=== PATIENT | female | born 1990 | race Caucasian/White ===

== ENCOUNTER 2024-06-20 14:17 | Outpatient (AMB) | payer BC, SELFPAY ==
[2024-06-20 14:19] VITALS: BP 98/62; PULSE 84; O2SAT 98; BMI 35.7
--- NOTE | 2024-06-20 14:19 | MHC.PC.OV ---
Vital Signs 06/20/24 14:19 Height 5 ft 1 in Weight 189 lb BMI 35.7 BP 98/62 Blood Pressure Location Lt brachial Position Sitting Pulse 84 Pulse Source Pulse Oximeter Pulse Oximetry (%) 98 Oxygen Delivery Method Room Air Intake Visit Reasons: NEW PATIENT Electrician Wiring Required: No Allergies No Known Allergies Allergy (Verified 06/20/24 14:33) Medication List - Last Reconciled 06/20/[address] PA-C medroxyprogesterone mg IM Tobacco use date assessed: 06/20/24 Dental Screening Dental Screen Date: 06/20/24 Did you have a dental visit in the last 12 months?: Yes Did you have a dental problem in the last 6 months where you did not have access to dental care?: No Was dental information given to patient?: Patient has dentist HPI NEW PATIENT HPI Details 33-year-old female coming to the office for the 1st time. [place] [facility] [place] She regularly follows with [place]necology through [facility] for annual Pap smears and management control. Patient states she has not been to a primary care in over 10 years. Since December she has been having regular stools which began with initially change in color and has progressed to change in caliber. Patient has been having diarrhea 3-4 times per day and often wakes up in the middle of the night to use the bathroom. Denies seeing any blood in the stools or pain when having a bowel movement. She has not tried anything for her symptoms and denies any incontinence. She also mentions having brain fog for several months. [facility] Family History (Updated 06/20/24 @ 14:[address] PA-C) Maternal Uncle Colon cancer Maternal Aunt Diabetes Social History (System 11/13/23 @ 12:42 by Fabby Ruelas) Housing: House Patient Tobacco Use Status: Never used Tobacco service: No Current occupational status: employed Current occupation: teacher Cognitive needs: No Hearing needs: No Vision needs: No Female Reproductive History Menstrual control method: progesterone injection Questionnaire PHQ-9 Over the last 2 weeks, how often have you been bothered by any of the following problems? 1. Little interest or pleasure in doing things: not at all 2. Feeling down, depressed, or hopeless: not at all 3. Trouble falling or staying asleep, or sleeping too much: not at all 4. Feeling tired or having little energy: several days 5. Poor appetite or overeating: not at all 6. Feeling bad about yourself - or that you are a failure or have let yourself or your family down: not at all 7. Trouble concentrating on things, such as reading the newspaper or watching television: several days 8. Moving or speaking so slowly that other people could have noticed. Or the opposite - being so fidgety or restless that you have been moving around a lot more than usual: not at all 9. Thoughts that you would be better off or of hurting yourself in some way: not at all Total score: 2 Depression Screening Interpretation: Negative Depression Screening Done: Yes 26093 - PHQ-9 Billing: Yes Source: Developed by Drs. Jay Mackenzie, Dee Dee Page, Andrea Red and colleagues, with an educational nomi from [employer]. Thrive Questionnaire Date Thrive assessed: 06/20/24 I am a: Patient What is your living situation today?: I have a steady place to live Within the past 12 months, did the food you bought not last and you didn't have the money to get more?: Never true Within the past 12 months, did you worry whether your food would run out before you got money to buy more?: Never true Do you have trouble paying for medicines?: No Do you have trouble getting transportation to medical appointments?: No Do you have trouble paying your heating and electricity bill?: No Do you have trouble taking care of your child, family member or friend?: No Do you have trouble with day-to-day activities such as bathing, preparing meals, shopping, managing finances, etc.?: No Are you currently unemployed and looking for a job?: No Are you interested in more education?: No Please select the resources that you would like help with: None Currently or been in a relationship where the following occur: No concerns reported THRIVE Score: 0 AUDIT C Alcohol Use Questionnaire (AUDIT-C) 1. How often do you have a drink containing alcohol?: 2-4 times a month 2. How many drinks containing alcohol do you have on a typical day when you are drinking?: 1 or 2 3. How often do you have six or more drinks on one occasion?: Never Total Score: 2 DHARA-7 AMB Questionnaire DHARA-7 Date DHARA - 7 assessed: 06/20/24 Feeling nervous, anxious, or on edge: 0 = Not at all Not being able to stop or control worryin = Not at all Worrying too much about different things: 0 = Not at all Trouble relaxin = Not at all Being so restless that it is hard to sit still: 0 = Not at all Becoming easily annoyed or irritable: 2 = More than half the days Feeling afraid as if something awful might happen: 0 = Not at all Total DHARA-7 score (0-4 normal; 5-9 mild; 10-14 moderate; 15-21 severe): 2 Source: Developed by Drs. Jay Mackenzie, Dee Dee Page, Andrea Red and colleagues, with an educational nomi from [employer]. DHARA-7 Assessment Billing DHARA-7 Assessment Tool: DHARA-7 Assessment 82325 Review of Systems Const Denies body aches, Denies fatigue, Denies fever(s), Denies frequent falls, Denies headache(s) and Denies weakness Eyes Reports no additional complaints and Denies change in vision ENT Denies dysphagia, Denies dizziness, Denies facial pain, Denies headache(s), Denies nasal congestion and Denies odynophagia Card Denies chest pain, Denies syncope, Denies irregular heart rhythm, Denies leg edema, Denies lightheadedness and Denies dyspnea Resp Denies cough and Denies dyspnea GI Denies abdominal pain, Denies melena, Denies hematochezia, Denies constipation, Denies dysphagia, Denies dyspepsia, Reports diarrhea, Denies nausea, Denies odynophagia and Denies vomiting Denies urinary frequency, Denies dysuria, Denies urinary hesitancy and Denies urinary urgency Musc Denies back pain and Denies myalgias Skin/Breast Reports system reviewed and no additional complaints, except as documented Neuro Denies dizziness, Denies syncope, Denies frequent falls, Denies headache(s) and Denies weakness Psych Reports no additional complaints Endo Denies fatigue Physical exam (Primary Care) Vital Signs: Last Vital Signs Pulse 84 06/20/24 14:19 BP 98/62 06/20/24 14:19 Pulse Ox 98 06/20/24 14:19 Oxygen Delivery Method Room Air 06/20/24 14:19 BMI result Body Mass Index 35.7 Tobacco/Smoking Status: Tobacco use Status Tobacco use date assessed 06/20/24 06/20/24 14:20 Patient Tobacco Use Status Never used Tobacco 06/20/24 14:20 PHQ-9: PHQ-9 Score PHQ-9: Total score 2 06/20/24 14:32 Depression Screening Interpretation: Negative Thrive Assessment: Date of Thrive Assessment Date Thrive assessed 06/20/24 06/20/24 14:20 Currently or been in a relationship where the following occur: No concerns reported Const General: cooperative, healthy appearing, comfortable and no acute distress Orientation/consciousness: patient oriented x3 HENMT Head: Yes normocephalic Ears: hearing grossly normal bilaterally General nose exam: Normal external nose present Eyes General: appearance normal, both eyes and all related structures Conjunctivae: conjunctivae normal Neck Neck: Yes full ROM and Yes no lymphadenopathy Resp Effort & Inspection: normal respiratory effort Auscultation: clear to auscultation bilaterally, no crackles, no rales, no rhonchi and no wheezes Cardio Rate: regular rate Rhythm: regular rhythm GI Inspection: Yes normal to inspection Palpation (GI): Soft to palpation, not firm, nontender, no guarding, not rigid and no masses Skin General skin exam: no rashes or lesions noted Neuro General: patient oriented x3 Gait exam (Neuro): Normal gait present Extrem General: Yes normal to inspection, Yes full ROM and No edema Psych Affect: normal affect Attitude: cooperative Insight: Good insight present (Psych) Judgement: Good judgement present (Psych) Coding Level of Care Code New Pt Level 4 (82444) Diagnoses Diarrhea R19.7 Brain fog R41.89 Additional Codes DHARA-7 Assessment Billing - DHARA-7 Assessment Tool: DHARA-7 Assessment 45362 ([id number]) Assessment & Plan Assessment & Plan (1) Diarrhea: Code(s): R19.7 - Diarrhea, unspecified Category: Medical Plan: Patient states she has been having diarrhea 3-4 times per day without abdominal pain or blood in the stools. Ordered for blood work for further evaluation. Discussed starting fiber daily to help bulk the stools and beginning a low FODMAP diet. Patient was provided with informational packet on low FODMAP diet and we will follow up in 2 months annual exam for re-evaluation. Advised to drink plenty of water to stay hydrated. (2) Brain fog: Code(s): R41.89 - Other symptoms and signs involving cognitive functions and awareness Category: Medical Plan: Patient states she has been having brain fog without any anxiety or depression. She feels she sleeps okay with the exception of waking up to use the bathroom. Denies any snoring or shortness of breath at night. Ordered for routine blood work to look for organic cause. Follow up at next appointment. Plan Ordered for updated blood work to be completed before next appointment and we will follow up in 2 months for annual exam. This note was constructed using voice recognition software. While every effort has been made to ensure accuracy and dolly operator, still areas may have been included sometimes these areas may affect the content or meeting of the given symptoms. Total time spent caring for the patient today was 30 minutes. This includes time spent before the visit reviewing the chart, time spent during the visit, and time spent after the visit and documentation. Orders: Orders Comprehensive Met. Panel Today Z00.00 - Encounter for general adult medical examination without abnormal findings Complete Blood Count Auto Diff Today Z00.00 - Encounter for general adult medical examination without abnormal findings Free T4 (Free Thyroxine) Today Z00.00 - Encounter for general adult medical examination without abnormal findings Vitamin D 25-OH (D2 and D3) Today Z00.00 - Encounter for general adult medical examination without abnormal findings TSH reflex Free T4 Today Z00.00 - Encounter for general adult medical examination without abnormal findings Lipid Panel Today Z00.00 - Encounter for general adult medical examination without abnormal findings Vitamin B12 and Folate Today Z00.00 - Encounter for general adult medical examination without abnormal findings UA CC w/rflx Micro + Cult Today R35.89 - Other polyuria
== END 2024-06-20 14:58 | disposition home or self-care (01) ==
PROVIDERS: PCP Internal Medicine
DX: R19.7 Diarrhea, unspecified (principal); R41.89 Other symptoms and signs involving cognitive functions and awareness

== ENCOUNTER → 2024-06-20 14:17 | Outpatient (BNVA) | payer BC, SELFPAY | PROVIDERS: PCP Internal Medicine | DX: R19.7 Diarrhea, unspecified (principal); R41.89 Other symptoms and signs involving cognitive functions and awareness | CPT/HCPCS: 96127 ==

== ENCOUNTER 2024-08-16 07:17 | Outpatient (REF) | payer BC, SELFPAY ==
[2024-08-16 07:31] LABS: MANUAL DIFF FLAG NO
[2024-08-16 07:44] LABS: Basophils Percent Auto 0.4 % (0-2); Eosinophils Absolute Auto 0.2 X10*3/uL (0.0-0.4); Eosinophils Percent Auto 2.3 % (0-4); Hematocrit 38.3 % (37.0-47.0); Hemoglobin 12.7 g/dl (12.0-16.0); Imm Gran Abs Auto 0.04 X10*3/uL (0.00-0.03); Imm Gran Pct Auto 0.5 % (0.0-0.4); Lymphocytes Absolute Auto 3.6 X10*3/uL (1.2-4.9); Mean Corpuscular HGB Conc 33.2 g/dl (31.0-35.0); Mean Corpuscular Volume 87.4 fL (80.0-98.0); Mean Platelet Volume 8.7 fL (9.4-12.3); Monocytes Absolute Auto 0.5 X10*3/uL (0.1-1.2); Monocytes Percent Auto 5.4 % (2-11); Neutrophils Percent Auto 48.4 % (45-73); Platelet Count 298 X10*3/uL (160-400); Red Blood Count 4.38 X10*6/uL (4.20-5.50); Red Cell Distribution Width 13.3 % (11.0-16.0); White Blood Count 8.3 X10*3/uL (4.8-10.8)
[2024-08-16 07:47] LABS: Appearance Urine Clear; Color Urine Yellow; Glucose Urine UA Negative (Negative); Leukocyte Esterase Urine Negative (Negative); Nitrite Urine Negative (Negative); PH 5.5 (5.0-9.0); Specific Gravity - Urine 1.025 (1.005-1.025); Urine Blood Negative (Negative); Urine Ketones Negative (Negative); Urine Protein Negative (Neg-Trace)
[2024-08-16 08:24] LABS: Alanine Aminotransferase 16 U/L (0-31); Albumin Level 4.3 g/dL (3.5-5.0); Alkaline Phosphatase 56 U/L (39-117); Anion Gap 12 (12-20); Aspartate Amino Transferase 20 U/L (5-31); Bilirubin Total 0.5 mg/dL (0.0-1.0); Blood Urea Nitrogen 12 mg/dL (9-16); Calcium 9.4 mg/dL (8.4-10.2); Carbon Dioxide 24 mmol/L (22-29); Chloride 108 mmol/L (96-108); Cholesterol 176 mg/dL (<200); Estimated Glomerular Filt Rate > 60; Glucose Random 92 mg/dL (60-115); HDL Cholesterol 61 mg/dL (>40); LDL Cholesterol Calculated 104 mg/dL (<100); Potassium 4.1 mmol/L (3.3-5.1); Sodium 140 mmol/L (135-145); Total Protein 7.5 g/dL (6.5-8.0); Triglycerides 58 mg/dL (<150)
[2024-08-16 08:40] LABS: Free T4 (Free Thyroxine) 1.08 ng/dL (0.71-1.85); TSH reflex Free T4 1.09 uIU/mL (0.32-4.0)
[2024-08-16 08:49] LABS: Folate 14.3 ng/mL (> or = 4.0); Vitamin B12 490 pg/mL (200-900)
[2024-08-19 13:32] LABS: Vitamin D 25-OH, D2 <4 ng/mL; Vitamin D 25-OH, D3 21 ng/mL; Vitamin D 25-OH, Total 21 ng/mL (30-100)
== END 2024-08-16 07:18 | disposition home or self-care (01) ==
LOC: HO.LAB 07:17
DX: Z00.00 Encounter for general adult medical examination without abnormal findings (principal); R35.89 Other polyuria
CPT/HCPCS: 36415; 80053; 80061; 81003; 82306; 82607; 82746; 84439; 84443; 85025

== ENCOUNTER 2024-08-22 13:34 | Outpatient (AMB) | payer BC, SELFPAY ==
[2024-08-22 13:42] VITALS: BP 104/68; PULSE 70; O2SAT 100; BMI 35.6
--- NOTE | 2024-08-22 13:42 | A.OFFPC_ITS ---
Vital Signs 08/22/24 13:42 Height 5 ft 1 in Weight 188 lb 6 oz BMI 35.6 BP 104/68 Blood Pressure Location Lt brachial Position Sitting Pulse 70 Pulse Source Pulse Oximeter Pulse Oximetry (%) 100 Oxygen Delivery Method Room Air Intake Visit Reasons: Annual Exam Intake Note: Patient is here today for a physical. Circulation Director Required: No Accompanied by: Self / Same As Patient Allergies No Known Allergies Allergy (Verified 08/22/24 13:50) Medication List - Last Reconciled 08/22/[address] PA-C medroxyprogesterone mg IM Tobacco use date assessed: 06/20/24 Dental Screening Dental Screen Date: 06/20/24 HPI Annual Exam HPI Details 33-year-old female coming to the office for annual exam. Patient follows with gynecology through [facility] for regular Pap smears and is due in November. She does mentioned in the diarrhea has been persistent despite using fiber and following the low FODMAP diet. She has no family history of inflammatory bowel disease and does have family history of colorectal cancer in a maternal uncle. She states her headaches have been improving and is no longer waking up with headaches. However she does still wake up in the middle of the night to have a bowel movement. [facility] Family History Maternal Uncle Colon cancer Maternal Aunt Diabetes Social History Housing: House Patient Tobacco Use Status: Never used Tobacco e-Cigarette/Vaping Use: Never Used service: No Current occupational status: employed Current occupation: teacher Cognitive needs: No Hearing needs: No Vision needs: No Questionnaire Thrive Questionnaire Date Thrive assessed: 06/20/24 I am a: Patient What is your living situation today?: I have a steady place to live Within the past 12 months, did the food you bought not last and you didn't have the money to get more?: Never true Within the past 12 months, did you worry whether your food would run out before you got money to buy more?: Never true Do you have trouble paying for medicines?: No Do you have trouble getting transportation to medical appointments?: No Do you have trouble paying your heating and electricity bill?: No Do you have trouble taking care of your child, family member or friend?: No Do you have trouble with day-to-day activities such as bathing, preparing meals, shopping, managing finances, etc.?: No Are you currently unemployed and looking for a job?: No Are you interested in more education?: No Please select the resources that you would like help with: None Currently or been in a relationship where the following occur: No concerns reported THRIVE Score: 0 DHARA-7 AMB Questionnaire DHARA-7 Date DHARA - 7 assessed: 06/20/24 Source: Developed by Drs. Jay Mackenzie, Dee Dee Page, Andrea Red and colleagues, with an educational nomi from [email or web address]. Review of Systems Const Denies body aches, Denies fatigue, Denies fever(s), Denies frequent falls, Denies headache(s) and Denies weakness Eyes Reports no additional complaints and Denies change in vision ENT Denies dysphagia, Denies dizziness, Denies facial pain, Denies headache(s), Denies nasal congestion and Denies odynophagia Card Denies chest pain, Denies syncope, Denies irregular heart rhythm, Denies leg edema, Denies lightheadedness and Denies dyspnea Resp Denies cough and Denies dyspnea GI Denies abdominal pain, Denies melena, Denies hematochezia, Denies constipation, Denies dysphagia, Denies dyspepsia, Reports diarrhea, Denies nausea, Denies odynophagia and Denies vomiting Denies urinary frequency, Denies dysuria, Denies urinary hesitancy and Denies urinary urgency Musc Denies back pain and Denies myalgias Skin/Breast Reports system reviewed and no additional complaints, except as documented Neuro Denies dizziness, Denies syncope, Denies frequent falls, Denies headache(s) and Denies weakness Psych Reports no additional complaints Endo Denies fatigue Physical exam (Primary Care) Vital Signs: Last Vital Signs Pulse 70 08/22/24 13:42 BP 104/68 08/22/24 13:42 Pulse Ox 100 08/22/24 13:42 Oxygen Delivery Method Room Air 08/22/24 13:42 BMI result Body Mass Index 35.6 Tobacco/Smoking Status: Tobacco use Status Tobacco use date assessed 06/20/24 08/22/24 13:44 Patient Tobacco Use Status Never used Tobacco 08/22/24 13:44 e-Cigarette/Vaping Use Never Used 08/22/24 13:44 Thrive Assessment: Date of Thrive Assessment Date Thrive assessed 06/20/24 08/22/24 13:44 Currently or been in a relationship where the following occur: No concerns reported Const General: cooperative, healthy appearing, comfortable and no acute distress Orientation/consciousness: patient oriented x3 HENMT Head: Yes normocephalic Ears: hearing grossly normal bilaterally, external ears normal, TM's normal bilaterally and EAC's normal General nose exam: Normal external nose present Face and sinus: Yes normal facial exam and Yes sinuses nontender Mouth: Normal oral and palatal mucosa present and tongue normal Throat: Yes posterior oropharynx normal Eyes General: appearance normal, both eyes and all related structures Conjunctivae: conjunctivae normal Pupils: Equal, round and reactive pupils present EOM: EOMs intact bilaterally and No Nystagmus present Neck Neck: Yes normal visual inspection, Yes full ROM and Yes no lymphadenopathy Chest Chest palpation & inspection: normal inspection of the chest Resp Effort & Inspection: normal respiratory effort Auscultation: clear to auscultation bilaterally, no crackles, no rales, no rhonchi, no wheezes and breath sounds present Cardio Rate: regular rate Rhythm: regular rhythm Peripheral pulses: radial pulses present and dorsalis pedis present GI Inspection: Yes normal to inspection and No Abdominal wall edema Palpation (GI): Soft to palpation, not firm and nontender Auscultation: normal bowel sounds Rectal Exam - Female: deferred General: Yes no CVA tenderness Back/Spine/Pelvis Back: no CVA tenderness Skin General skin exam: no rashes or lesions noted Neuro General: patient oriented x3 Cranial nerves: Yes Equal, round and reactive pupils present, Yes Midline tongue present, Yes Ability to bilaterally elevate shoulders present and No Nystagmus present Gait exam (Neuro): Normal gait present Extrem General: Yes normal to inspection, Yes full ROM, No no pedal edema and No edema Psych Speech and movement: Normal speech and movement present Affect: normal affect Insight: Good insight present (Psych) Judgement: Good judgement present (Psych) Coding Level of Care Code Est Pt Prev Care 18-39y(55956) Diagnoses Annual physical exam Z00.00 Diarrhea R19.7 Assessment & Plan Assessment & Plan (1) Annual physical exam: Code(s): Z00.00 - Encounter for general adult medical examination without abnormal findings Category: Medical Plan: Patient is up-to-date on all recommended routine screenings and vaccinations for her age blood work is updated and we will follow up yearly or sooner if new problems arise. (2) Diarrhea: Code(s): R19.7 - Diarrhea, unspecified Category: Medical Plan: Patient continues to have diarrhea we will order for stool studies as well as ova and parasites and refer to GI at this time for further workup. Plan This note was constructed using voice recognition software. While every effort has been made to ensure accuracy and fish icer, still areas may have been included sometimes these areas may affect the content or meeting of the given symptoms. Total time spent caring for the patient today was 30 minutes. This includes time spent before the visit reviewing the chart, time spent during the visit, and time spent after the visit and documentation. Orders: Orders CDiff Gene PCR Today R19.7 - Diarrhea, unspecified Ova and Parasite Today R19.7 - Diarrhea, unspecified Leukocytes Stool Qualitative Today R19.7 - Diarrhea, unspecified Referrals Gastroenterology Referral R19.7 - Diarrhea, unspecified
== END 2024-08-22 14:09 | disposition home or self-care (01) ==
PROVIDERS: PCP Internal Medicine
DX: Z00.00 Encounter for general adult medical examination without abnormal findings (principal); R19.7 Diarrhea, unspecified

== ENCOUNTER → 2024-08-22 13:34 | Outpatient (BNVA) | payer BC, SELFPAY | PROVIDERS: PCP Internal Medicine ==

== ENCOUNTER 2024-08-29 11:38 | Outpatient (REF) | payer BC, SELFPAY ==
[2024-08-29 12:38] LABS: Leukocytes Stool Qualitative NEGATIVE (NEGATIVE)
[2024-08-29 12:50] LABS: CDiff Gene PCR NEGATIVE (Negative)
== END 2024-08-29 11:39 | disposition home or self-care (01) ==
LOC: HO.LNP 11:38
DX: R19.7 Diarrhea, unspecified (principal)
CPT/HCPCS: 87177; 87209; 87493; 89055

== ENCOUNTER 2025-08-24 16:01 | Outpatient (AMB) | payer BC, SELFPAY ==
[2025-08-24 16:13] VITALS: BP 118/66; PULSE 86; TEMP 36.3; O2SAT 98; BMI 37.8
--- NOTE | 2025-08-24 16:13 | MHC.PC.OV ---
Vital Signs 08/24/25 16:13 Height 5 ft 1 in Weight 200 lb BMI 37.8 BP 118/66 Blood Pressure Location Lt brachial Position Sitting Pulse 86 Pulse Source Pulse Oximeter Temp 97.3 F Temp Source Temporal Artery Scan Pulse Oximetry (%) 98 Oxygen Delivery Method Room Air Intake Visit Reasons: Annual Exam Allergies No Known Allergies Allergy (Verified 08/24/25 16:21) Medication List - Last Reconciled 08/24/[address] PA-C medroxyprogesterone mg IM ustekinumab-aekn (Selarsdi) 90 mg subcut Q8W Tobacco use date assessed: 08/24/25 Dental Screening Dental Screen Date: 08/24/25 Did you have a dental visit in the last 12 months?: Yes Did you have a dental problem in the last 6 months where you did not have access to dental care?: No Was dental information given to patient?: Patient has dentist HPI Annual Exam HPI Details 34-year-old female coming to the office for annual exam. Presenting for a follow-up primary care visit. She eventually underwent a colonoscopy in October with Dr. Yepez, who confirmed the diagnosis of Crohn's disease. She was initially treated with prednisone, which she disliked due to side effects including significant weight gain, and she does not wish to take it again. She was then started on Stelara with an initial infusion, but her insurance subsequently denied coverage. Her medication was switched in January, and she has been doing well since, reporting her condition is about 93-97% improved with no further diarrhea or blood in the stool. She sees her GI specialist as needed. The patient also reports a history of an irregular Pap smear, which led to a colposcopy and a new diagnosis of HPV, which she believes may have become apparent due to a suppressed immune system. The colposcopy results were regular. The patient reports feeling more anxious and overwhelmed, with a short temper, particularly at home with her three young children. She is not feeling sad or depressed and denies any thoughts of self-harm or harm to others. She reports having had athlete's foot for years with an associated fungal infection of the toenail on her left foot, which has been itchy. The patient is concerned about weight gain, noting she now weighs the most she ever has. She attributes some of this to taking prednisone, on which she gained about 30 pounds after a period of significant weight loss due to her Crohn's symptoms. She has a walking pad at home but has not been using it. pap smear: [facility] 2024 vaccines: UTD and flu given today PFSH Family History Maternal Uncle Colon cancer Maternal Aunt Diabetes Social History Housing: House Patient Tobacco Use Status: Never used Tobacco e-Cigarette/Vaping Use: Never Used service: No Current occupational status: employed Current occupation: teacher Cognitive needs: No Hearing needs: No Vision needs: No Questionnaire PHQ-9 Over the last 2 weeks, how often have you been bothered by any of the following problems? 1. Little interest or pleasure in doing things: not at all 2. Feeling down, depressed, or hopeless: several days 3. Trouble falling or staying asleep, or sleeping too much: several days 4. Feeling tired or having little energy: several days 5. Poor appetite or overeating: several days 6. Feeling bad about yourself - or that you are a failure or have let yourself or your family down: several days 7. Trouble concentrating on things, such as reading the newspaper or watching television: several days 8. Moving or speaking so slowly that other people could have noticed. Or the opposite - being so fidgety or restless that you have been moving around a lot more than usual: not at all 9. Thoughts that you would be better off or of hurting yourself in some way: not at all Total score: 6 Depression Screening Interpretation: Positive Depression Screening Follow-up: Existing condition and Community Mental Health Worker F/U Depression Screening Done: Yes 59844 - PHQ-9 Billing: Yes Source: Developed by Drs. Jay Mackenzie, Dee Dee Page, Andrea Red and colleagues, with an educational nomi from [employer]. Thrive Questionnaire Date Thrive assessed: 08/24/25 I am a: Patient What is your living situation today?: I have a steady place to live Within the past 12 months, did the food you bought not last and you didn't have the money to get more?: Never true Within the past 12 months, did you worry whether your food would run out before you got money to buy more?: Never true Do you have trouble paying for medicines?: No Do you have trouble getting transportation to medical appointments?: No Do you have trouble paying your heating and electricity bill?: No Do you have trouble taking care of your child, family member or friend?: No Do you have trouble with day-to-day activities such as bathing, preparing meals, shopping, managing finances, etc.?: No Are you currently unemployed and looking for a job?: No Are you interested in more education?: No Please select the resources that you would like help with: None Currently or been in a relationship where the following occur: No concerns reported THRIVE Score: 0 AUDIT C Alcohol Use Questionnaire (AUDIT-C) 1. How often do you have a drink containing alcohol?: 2-4 times a month 2. How many drinks containing alcohol do you have on a typical day when you are drinking?: 1 or 2 3. How often do you have six or more drinks on one occasion?: Never Total Score: 2 DHARA-7 AMB Questionnaire DHARA-7 Date DHARA - 7 assessed: 08/24/25 Feeling nervous, anxious, or on edge: 1 = Several days Not being able to stop or control worryin = Several days Worrying too much about different things: 1 = Several days Trouble relaxin = Not at all Being so restless that it is hard to sit still: 0 = Not at all Becoming easily annoyed or irritable: 1 = Several days Feeling afraid as if something awful might happen: 1 = Several days Total DHARA-7 score (0-4 normal; 5-9 mild; 10-14 moderate; 15-21 severe): 5 Source: Developed by Drs. Jay Mackenzie, Dee Dee Page, Andrea Red and colleagues, with an educational nomi from [employer]. DHARA-7 Assessment Billing DHARA-7 Assessment Tool: DHARA-7 Assessment 45677 Review of Systems Const Denies body aches, Denies chills, Denies fever(s), Denies headache(s) and Denies poor appetite Eyes Reports no additional complaints ENT Denies dysphagia, Denies dizziness, Denies headache(s) and Denies odynophagia Card Denies chest pain, Denies syncope, Denies edema, Denies irregular heart rhythm, Denies lightheadedness and Denies dyspnea Resp Denies cough and Denies dyspnea GI Denies abdominal pain, Denies constipation, Denies dysphagia, Denies diarrhea, Denies nausea, Denies odynophagia and Denies vomiting Reports no additional complaints Musc Reports no additional complaints and Denies abnormal gait Skin/Breast Reports system reviewed and no additional complaints, except as documented Neuro Denies abnormal gait, Denies dizziness, Denies syncope and Denies headache(s) Psych Reports no additional complaints Physical exam (Primary Care) Vital Signs: Last Vital Signs Temp 97.3 F 08/24/25 16:13 Pulse 86 08/24/25 16:13 BP 118/66 08/24/25 16:13 Pulse Ox 98 08/24/25 16:13 Oxygen Delivery Method Room Air 08/24/25 16:13 BMI result Body Mass Index 37.8 Tobacco/Smoking Status: Tobacco use Status Tobacco use date assessed 08/24/25 08/24/25 16:18 Patient Tobacco Use Status Never used Tobacco 08/24/25 16:18 e-Cigarette/Vaping Use Never Used 08/24/25 16:18 PHQ-9: PHQ-9 Score PHQ-9: Total score 6 08/24/25 16:43 Depression Screening Interpretation: Positive Depression Screening Follow-up: Existing condition and Community Mental Health Worker F/U Thrive Assessment: Date of Thrive Assessment Date Thrive assessed 08/24/25 08/24/25 16:18 Currently or been in a relationship where the following occur: No concerns reported Const General: cooperative, healthy appearing, comfortable and no acute distress Orientation/consciousness: patient oriented x3 HENMT Head: Yes normocephalic Ears: hearing grossly normal bilaterally General nose exam: Normal external nose present Eyes General: appearance normal, both eyes and all related structures Conjunctivae: conjunctivae normal Neck Neck: Yes full ROM and Yes no lymphadenopathy Resp Effort & Inspection: normal respiratory effort Auscultation: clear to auscultation bilaterally, no crackles, no rales, no rhonchi and no wheezes Cardio Rate: regular rate Rhythm: regular rhythm Skin General skin exam: no rashes or lesions noted Neuro General: patient oriented x3 Gait exam (Neuro): Normal gait present Extrem General: Yes normal to inspection, Yes full ROM and No edema Psych Affect: normal affect Attitude: cooperative Insight: Good insight present (Psych) Judgement: Good judgement present (Psych) Office Procedures Flu Questionnaire Does the patient have a severe egg allergy?: No Does the patient have severe life threatening allergies?: No Does the patient have a fever or illness today?: No Has the patient ever had Guillain-Millwood Syndrome?: No Has the patient ever had any past reaction to a flu shot?: No Immunizations Fluarix [id number] (PF) 45 mcg (15 mcg x 3)/0.5 mL IM syringe Performing Provider: Naa Lane PA-C [facility] Administered by: Micaela Duncan CMA on 08/24/25 16:43 Dose Route Admin Location Dispensed Lot Number Expiration Date NDC Stone And Plate Preparer Apprentice 0.5 mL IM Right Deltoid 0.5 mL [id number] 03/16/26 [id number] [employer] VIS Given Date VIS Provided VIS Publication Date 08/24/25 Single Vaccine 24 Eligibility Eligibility Date Funding Source Not [facility] Eligible 08/24/25 Private Coding Level of Care Code Est Pt Prev Care 18-39y(91035) Diagnoses Annual physical exam Z00.00 Crohn disease K50.90 Anxiety F41.9 Onychomycosis B35.1 Tinea pedis B35.3 Obesity (BMI 30.0-34.9) E66.811 Additional Codes DHARA-7 Assessment Billing - DHARA-7 Assessment Tool: DHARA-7 Assessment 93376 ([id number]) PHQ-9 - 86615 - PHQ-9 Billing: Yes ([id number]) Assessment & Plan Assessment & Plan (1) Annual physical exam: Code(s): Z00.00 - Encounter for general adult medical examination without abnormal findings Category: Medical Plan: Patient is up-to-date on all recommended routine screenings and vaccinations for her age. She has completed a mammogram and colonoscopy and is up-to-date on these. Healthy diet and regular exercise is encouraged. Ordered for updated blood work (2) Crohn disease: Comment: Dr. Lucho Guzmán Code(s): K50.90 - Crohn's disease, unspecified, without complications Category: Medical Plan: The patient's Crohn's disease is stable on her current medication regimen. She denies any recent blood in stool, diarrhea, or abdominal pain. Continue current medication and follow up with her GI specialist on an as-needed basis. Advised on precautions due to her immunosuppressed state. (3) Anxiety: Code(s): F41.9 - Anxiety disorder, unspecified Category: Medical Plan: The patient reports symptoms of anxiety, feeling overwhelmed, and having a short fuse, which she relates to work and family stress. She denies depression or thoughts of self-harm. A discussion was held regarding treatment options, including therapy and medications. The risks and benefits of various medication classes were reviewed. The patient expressed interest in trying non-pharmacological options first, including magnesium supplements and counseling. A referral for counseling/therapy will be provided. The plan is to re-evaluate her anxiety symptoms at the three-month follow-up visit. (4) Onychomycosis: Code(s): B35.1 - Tinea unguium Category: Medical Plan: The patient has a history of tinea pedis and onychomycosis of the left foot that has not responded to cnaq-vzj-sqmouas treatments. A topical antifungal solution for the toenail and a topical cream for the skin will be prescribed. The patient was counseled to use the topical solution daily until the entire toenail has grown out to prevent recurrence. The potential need for oral antifungal medication, which requires a three-month course and liver monitoring, was discussed if the topical treatment is ineffective. A follow-up is scheduled in three months to assess treatment response. (5) Tinea pedis: Code(s): B35.3 - Tinea pedis Category: Medical Plan: See above (6) Obesity (BMI 30.0-34.9): Code(s): E66.811 - Obesity, class 1 Category: Medical Plan: Healthy diet and regular exercise is encouraged. The patient is concerned about weight gain, some of which she attributes to a prior course of prednisone. Medication options for weight loss, including GLP-1 agonists (injections) and phentermine, were discussed. It was noted that injections may not be covered by insurance for weight loss and would require clearance from her GI specialist due to her Crohn's disease. The patient is not interested in seeing a sequencing machine operator. Dietary and lifestyle modifications were discussed, including focusing on a high-protein, low-carbohydrate diet, portion control, avoiding sugary drinks, and incorporating consistent exercise, such as using her walking pad. Weight will be rechecked at the three-month follow-up. Plan This note was constructed using voice recognition software. While every effort has been made to ensure accuracy and unemployment benefits claims taker, still areas may have been included sometimes these areas may affect the content or meeting of the given symptoms. Total time spent caring for the patient today was 45 minutes. This includes time spent before the visit reviewing the chart, time spent during the visit, and time spent after the visit and documentation. Patient was informed and verbally consented to the use of an ambient scribe for clinic note documentation during this visit. Orders: Orders Vitamin B12 and Folate 08/24/25 Z13.21 - Encounter for screening for nutritional disorder Vitamin D 25-OH Total 08/24/25 Z13.21 - Encounter for screening for nutritional disorder Lipid Panel 08/24/25 Z13.1 - Encounter for screening for diabetes mellitus UA CC w/rflx Micro + Cult 08/24/25 R35.89 - Other polyuria Influenza [id number] Immunization 08/24/25 Z23 - Encounter for immunization TSH reflex Free T4 08/24/25 Z13.29 - Encounter for screening for other suspected endocrine disorder Complete Blood Count Auto Diff 08/24/25 K50.90 - Crohn's disease, unspecified, without complications, Z13.0 - Encounter for screening for diseases of the blood and blood-forming organs and certain disorders involving the immune mechanism Comprehensive Met. Panel 08/24/25 K50.90 - Crohn's disease, unspecified, without complications, Z00.00 - Encounter for general adult medical examination without abnormal findings Referrals Counseling Referral F41.9 - Anxiety disorder, unspecified Medications: New clotrimazole 1% (Antifungal (clotrimazole)) 1 appl topical BID 15 grams 0RF urea-lactic acid-propylene gly (Kerasal Fungal Nail Renewal topical solution) 1 mL topical DAILY 10 mL 0RF
--- OUTSIDE RECORDS SUMMARY | 2025-08-25 01:37 | XMS_ITS | Clinical Summary ---
Author Organization [address] [facility] Address [address] [place] [address] Phone Care Team Providers Care Fuel Pilot Engineer Name Role Phone Naa Lane Primary Care Provider [phone] Allergies No known active allergies Medications medroxyPROGESTER one (Depo-Provera) 150 mg/mL injection Inject 1 mL (150 mg total) into the shoulder, thigh, or buttocks. 08/18/2024 Active Stelara 130 mg/26 mL solution 01/01/2025 Active loratadine (CLARITIN) 10 mg tablet Take 1 tablet (10 mg total) by mouth 1 (one) time each day. Active ustekinumab-aekn (Selarsdi) 90 mg/mL syringeIndicatio ns:Crohn's disease of colon with rectal bleeding (CMS/HCC V24, CMS/HCC V28) Inject 1 mL (90 mg total) under the skin once every eight weeks. 6 mL 06/04/2025 Active Active Problems Problem Noted Date Diagnosed Date Crohn's disease of colon with rectal bleeding Family history of colon cancer Encounters Date Type Department Care Team Description 05/27/2025 Telephone Gastroenterology - [place] 175 [facility] [address] [place] [address] Jamaal Yepez MD from Last 3 Months Surgical History Surgery Date Site/Laterality Comments COLONOSCOPY Medical History Medical History Date Comments Family history of colon cancer Hx of Crohn's disease Family History Medical History Relation Name Comments Arthritis Mother Hypertension Mother Diabetes Mother's Brother 1 Brooks Diabetes Mother's Brother 2 Shady Colon cancer Mother's Brother 3 Ej Relation Name Status Comments Mother Mother's Brother 1 Brooks Mother's Brother 2 Shady Mother's Brother 3 Ej Social History Tobacco Use Types Packs/Day Years Used Date Smoking Tobacco: Never Passive Smoke Exposure: Never Smokeless Tobacco: Never Tobacco Cessation:Counseling Given: Not Answered Alcohol Use Standard Drinks/Week Comments Yes 1 (1 standard drink = 0.6 oz pur e alcohol) VERY RARE Interpersonal Safety Answer Date Record ed Physical Abuse Unrecognized value 11/18/2024 Verbal Abuse Unrecognized value 11/18/2024 Comments No Sex and Gender Information Value Date Recorded Sex Assigned at Female 09/11/2024 3:11 PM EST Legal Sex Female 2:47 PM EST Gender Identity Female 09/11/2024 3:11 PM EST Sexual Orientation Straight 09/11/2024 3: 11 PM EST Last Filed Vital Signs Vital Sign Reading Time Taken Comments Blood Pressure 100/58 01/22/2025 10:38 AM EDT Pulse 80 01/22/2025 10:38 AM EDT Temperature 36.3 C (97.4 F) 01/22/2025 10:38 AM EDT Respiratory Rate 16 01/22/2025 10:38 AM EDT Oxygen Saturation 100% 01/22/2025 10:38 AM EDT Inhaled Oxygen Concentration - - Weight 85.5 kg (188 lb 6.4 oz) 01/22/2025 10:38 AM EDT Height 154.9 cm (5' 1 ) 01/02/2025 1:57 PM EDT Body Mass Index 35.6 01/02/2025 1:57 PM EDT Plan of Treatment Health Maintenance Due Date Last Done Comments Hepatitis B Vaccines (1 of 3 - 19+ 3-dose series) 2007 Cervical Cancer Screening: P ap Smear 2009 HPV Vaccines (1 - 3-dose SCD M series) 2015 Cholesterol Screening (Lipid Panel) 08/26/2024 HIV Screening 08/26/2024 Hepatitis C Screening 08/26/2024 Social Influencers of Health Screening 08/26/2024 Depression Screening 09/17/2024 COVID-19 Vaccine (4 - 2024-2 6 season) 2025 08/25/2021, 12/24/2020, 12/02/2020 Influenza Vaccine (#1) 2025 8, 09/15/2014 DTaP,Tdap,and Td Vaccines (4 - Td or Tdap) 04/04/2033 04/04/2023, 07/23/2018, 09/15/2014 RSV Immunization Adult Patients (1 - 1-dose 75+ series) 2063 MMR Vaccines Aged Out 01/02/2020 No longer eligi ble based on patient's age to complete this topic HIB Vaccines Aged Out No longer eligi ble based on patient's age to complete this topic Hepatitis A Vaccines Aged Out No long er eligible based on patient's age to complete this topic IPV Vaccines Aged Out No longer eligi ble based on patient's age to complete this topic Meningococcal ACWY Vaccine Aged Out N o longer eligible based on patient's age to complete this topic Meningococcal B Vaccine Aged Out No l onger eligible based on patient's age to complete this topic Pneumococcal Vaccine: Pediatrics (0 to 5 Years) and At-Risk Patients (6 to 49 Years) Aged Out No longer eligible b ased on patient's age to complete this topic RSV Immunization Patients Under 20 months Aged Out No longer eligible b ased on patient's age to complete this topic Varicella Vaccines Aged Out No longer eligible based on patient's age to complete this topic Insurance Care Teams Fuel Pilot Engineer Relationship Specialty Start Date End Date Naa Lane PA [address] [place] [address], [address] [place] [address] PCP - General 08/28/24
--- OUTSIDE RECORDS SUMMARY | 2025-08-25 01:37 | XMS_ITS ---
Author Name [facility] Unknown History of Medication Use Medication Directions Dispensed Refills Start Date End Date Stat us barium sulfate (READI-CAT 2) 2 % (w/v) suspension 450 mL 450 mL, oral, Once in imaging, Starting on Sun10/07/24 at 1324, For 1 dose 10/07/2024 10/07/19 completed iopamidoL (ISOVUE-370) 370 mg iodine /mL (76 %) injection 100 mL 100 mL, intravenous, Once in imaging, Starting on Sun10/07/24 at 1324, For 1 dose 10/07/2024 10/07/19 25 completed sodium chloride 0.9 % flush 10 mL 10 mL, intravenous, Once, On Sun10/07/24 at 1345, For 1 dose 10/07/2024 10/07/19 completed sodium chloride 0.9 % intravenous solution 50 mL 50 mL, intravenous, Once in imaging, Starting on Sun10/07/24 at 1324, For 1 dose 10/07/2024 10/07/19 25 completed diphenoxylate-atropine (LOMOTIL) 2.5-0.025 mg per tablet Take 1 tablet by mouth 4 (four) times a day if needed for diarrhea. Max Daily Amount: 4 tablets 09/12/2024 active medroxyPROGESTERone (Depo-Provera) 150 mg/mL injection Inject 1 mL (150 mg total) into the shoulder, thigh, or buttocks. 08/18/2024 active Encounters Encounter Type Encounter Reason Primary Diagnosis Location Date Ambulatory [facility] 10/07/2024 Care Team Organization Name Specialty Phone Email Start Date End Da te [facility] Primary Care 10/20/2024 [facility] Primary Care 10/07/2024 [facility] NO PCP Primary Care 06/09/2024
--- OUTSIDE RECORDS SUMMARY | 2025-08-25 01:37 | XMS_ITS | Patient Health Record ---
Author Organization [facility] Address [address] [place] [address] Care Team Providers Care Oilseed Meat Presser Name Role Phone Radha Jackman MD Primary Care Provider Unavail able [employer] Unavailable [phone] Reason For Referral No Information Medications Medication SIG (Take, Route, Frequency, Duration) Notes Start Date End Date Status + Complete Multi 18-0.8 & 290 MG Orally Active Vitamins 28-0.8 MG 1 tablet Orally Once a day; Duration: 90 days 01/28/2018 Active Immunizations Vaccine Route Administration Date Status Comme nts HPV (human papillomavirus), quadrivalent, 3 dose schedule Intramuscular 11/06/2012 Pending HPV (human papillomavirus), quadrivalent, 3 dose schedule Intramuscular 03/10/2013 Pending Problems Problem Type SNOMED Code ICD Code Onset Dates Problem Status W/U Status Risk Notes Problem Amenorrhea (19967121) Amenorrhea, unspecified (N91.2) Active confirmed Plan Of Treatment Pending Test Test Name Order Date Ultrasound : Breast, left 03/07/2016 Test, Urine 01/28/2018 Test, Urine 01/06/2015 ULTRASOUND: PELVIC W/TRANSVAGINAL 2017 Insurance Providers Payer Name Payer Address Payer Phone Subscriber Number Group Number Insured Name Patient Relationship to Insured Coverage Start Date Coverage End Date [employer] [address] [place] [address] [phone] [id number] KAMALJIT SKINNER Self - patient is the insured Medications Administered Medication Instructions Date of Administration Dosage Notes DEPO PROVERA 04/07/2015 150 mg DEPO PROVERA 06/30/2015 150 mg PT HAS NO CO MPLAINTS. PT IS DUE FOR NEXT INJ 09/21/2015. [facility] DEPO PROVERA 09/20/2015 150 mg DEPO PROVERA 12/13/2015 150 mg DEPO PROVERA 03/07/2016 150 mg DEPO PROVERA 05/30/2016 150 mg DEPO PROVERA 08/22/2016 150 mg DEPO PROVERA 11/14/2016 150 mg Medroxyprogesterone 01/06/2015 150 mg Medical (General) History Medical History History ICD Code Encounter for surveillance of injectable contraceptive Z30.42 Low grade squamous intraepit helial lesion on cytologic smear of cervix (LGSIL) R87.612
== END 2025-08-24 17:07 | disposition home or self-care (01) ==
LOC: HO.HMCH 16:02
DX: Z23 Encounter for immunization (principal)

== ENCOUNTER → 2025-08-24 16:01 | Outpatient (BNVA) | payer BC, SELFPAY | DX: Z13.31 Encounter for screening for depression (principal); Z13.39 Encounter for screening examination for other mental health and behavioral disorders; Z23 Encounter for immunization | CPT/HCPCS: 90471; 90656; 96127 ==

== ENCOUNTER 2025-09-05 08:18 | Outpatient (REF) | payer BC, SELFPAY ==
--- OUTSIDE RECORDS SUMMARY | 2025-09-05 08:21 | XMS_ITS | Clinical Summary ---
Author Organization [address] [facility] Address [address] [place] [address] Phone Care Team Providers Care Investigator Internal Affairs Name Role Phone Naa Lane Primary Care Provider [phone] Allergies No known active allergies Medications medroxyPROGESTER [...] rectal bleeding Family history of colon cancer Surgical History Surgery Date Site/Laterality Comments COLONOSCOPY [...] Screening 08/26/2024 Depression Screening 09/17/2024 COVID-19 Vaccine (2024-2 6 season) 2025 08/25/2021, 12/24/2020, 12/02/2020 Influenza [...] to complete this topic Insurance Care Teams Investigator Internal Affairs Relationship Specialty Start Date End Date Naa Lane PA [address] [place] [address], [address] [place] [address] PCP - General 08/28/24
--- OUTSIDE RECORDS SUMMARY | 2025-09-05 08:21 | XMS_ITS | Patient Health Record ---
Author Organization [facility] Address [address] [place] [address] Care Team Providers Care Piano Mover Name Role Phone Radha Jackman MD Primary Care Provider Unavail able [employer] Unavailable [phone] Reason For Referral No Information Medications Medication [...] Status W/U Status Risk Notes Problem Amenorrhea ([id number]) Amenorrhea, unspecified (N91.2) Active confirmed Plan Of Treatment Pending Test Test Name Order Date Ultrasound : Breast, left 03/07/2016 Test, Urine 01/28/2018 Test, Urine 01/06/2015 ULTRASOUND: PELVIC W/TRANSVAGINAL 2017 Insurance Providers Payer Name Payer Address Payer Phone Subscriber Number Group Number Insured Name Patient Relationship to Insured Coverage Start Date Coverage End Date [employer] [place] [address] [place] [phone] [id number] [id number] SKINNER Self - patient is the [...]
[2025-09-05 08:30] LABS: MANUAL DIFF FLAG NO
[2025-09-05 08:59] LABS: Hematocrit 39.9 % (37.0-47.0); Hemoglobin 13.2 g/dl (12.0-16.0); Imm Gran Abs Auto 0.02 X10*3/uL (0.00-0.03); Imm Gran Pct Auto 0.3 % (0.0-0.4); Lymphocytes Absolute Auto 3.2 X10*3/uL (1.2-4.9); Mean Corpuscular HGB Conc 33.1 g/dl (31.0-35.0); Mean Corpuscular Hemoglobin 28.7 pg (27.0-33.0); Mean Corpuscular Volume 86.7 fL (80.0-98.0); NRBC Abs Auto 0.000 X10*3/uL (0.0-0.012); NRBC Pct Auto 0.0 /100WBC (0.0-0.2); Platelet Count 269 X10*3/uL (160-400); Red Blood Count 4.60 X10*6/uL (4.20-5.50); White Blood Count 6.3 X10*3/uL (4.8-10.8)
[2025-09-05 09:10] LABS: Appearance Urine Clear; Glucose Urine UA Negative (Negative); PH 5.5 (5.0-9.0); Specific Gravity - Urine 1.025 (1.005-1.025)
[2025-09-05 09:47] LABS: Alanine Aminotransferase 12 U/L (0-31); Albumin Level 4.6 g/dL (3.5-5.0); Alkaline Phosphatase 42 U/L (39-117); Anion Gap 11 (12-20); Aspartate Amino Transferase 19 U/L (5-31); Blood Urea Nitrogen 11 mg/dL (9-16); Calcium 9.4 mg/dL (8.4-10.2); Carbon Dioxide 25 mmol/L (22-29); Chloride 109 mmol/L (96-108); Cholesterol 155 mg/dL (<200); Estimated Glomerular Filt Rate > 60; HDL Cholesterol 56 mg/dL (>40); Potassium 4.3 mmol/L (3.3-5.1); Sodium 141 mmol/L (135-145); Total Protein 7.4 g/dL (6.5-8.0); Triglycerides 50 mg/dL (<150)
[2025-09-05 11:17] LABS: Folate 10.2 ng/mL (> or = 4.0); Vitamin B12 366 pg/mL (200-900)
== END 2025-09-05 08:19 | disposition home or self-care (01) ==
LOC: HO.LAB 08:18
DX: Z00.00 Encounter for general adult medical examination without abnormal findings (principal); K50.90 Crohn's disease, unspecified, without complications; R35.89 Other polyuria; Z13.21 Encounter for screening for nutritional disorder; Z13.0 Encounter for screening for diseases of the blood and blood-forming organs and certain disorders involving the immune mechanism; Z13.1 Encounter for screening for diabetes mellitus; Z13.29 Encounter for screening for other suspected endocrine disorder; Z13.6 Encounter for screening for cardiovascular disorders
CPT/HCPCS: 36415; 80053; 80061; 81003; 82306; 82607; 82746; 84443; 85025